=== PATIENT | male | born 1955 | race Caucasian/White ===

== ENCOUNTER 2024-10-11 12:53 | Emergency (ER) | payer MEDICARE ==
[~2024-10-11] VITALS: Ht 167.6 cm; Wt 104.5 kg
[2024-10-11 13:07] VITALS: TEMP 97.5
[2024-10-11] MEDS: OxyCODONE HCL/ACETAMINOPHEN 5-325 MG TABLET PO ONE (16:12)
[2024-10-11 16:21] LABS: PLATELET COUNT (AUTO) 291 K/uL (150-450); RED BLOOD CELL COUNT(AUTO) 5.33 MIL/uL (4.50-5.90); RED CELL DISTRIBUTION WIDTH 18.3 % (11.5-14.5); WHITE BLOOD COUNT (AUTO) 9.2 K/uL (4.5-11.0)
[2024-10-11 16:30] LABS: CALCIUM, TOTAL 8.7 mg/dL (8.8-10.5); CREATININE 1.37 mg/dL (0.60-1.30); GLOMERULAR FILTR. RATE CALC 52 mL/min (>60); GLUCOSE,RANDOM 95 mg/dL (70-110); SODIUM SERUM 138 mmol/L (136-145); UREA NITROGEN, BLOOD 16 mg/dL (7-18)
[2024-10-11 16:33] LABS: ASPARTATE AMINOTRANSFERASE 25.0 U/L (15-37); TOTAL PROTEIN, SERUM 7.3 g/dL (6.4-8.2)
[2024-10-11 16:37] LABS: TROPONIN I-HIGH SENSITIVITY 15 ng/L (<76)
[2024-10-11] MEDS ORDERED: PERCT PO (17:08)
[2024-10-11] MEDS ORDERED: QUET25TA PO (17:08)
[2024-10-11] MEDS ORDERED: LISI-893 PO (17:08)
[2024-10-11] MEDS ORDERED: AMLO-258 PO (17:08)
[2024-10-11] MEDS ORDERED: LOSA-381 PO (17:08)
[2024-10-11] MEDS ORDERED: POLY119P3 PO (17:08)
[2024-10-11 17:30] VITALS: BP 150/91; PULSE 64; RESP 16; O2SAT 94
[2024-10-11] MEDS ORDERED: CARV12 PO (17:36)
[2024-10-11] MEDS ORDERED: LORA1TAB25 PO (17:36)
[2024-10-11] MEDS ORDERED: DEXA4 PO (17:36)
[2024-10-11] MEDS ORDERED: TAMS0.4C94 PO (17:36)
== END 2024-10-11 18:08 | disposition home or self-care (01) ==
LOC: EMS 12:57
DX: C61 Malignant neoplasm of prostate (principal); C79.51 Secondary malignant neoplasm of bone; I11.9 Hypertensive heart disease without heart failure; F17.210 Nicotine dependence, cigarettes, uncomplicated; R06.02 Shortness of breath
CPT/HCPCS: 71045; 80048; 80076; 83735; 83880; 84484; 85025; 93005; 99285; 36415-L1; 36415-TC